=== PATIENT | female | born 1990 | race Caucasian/White ===

== ENCOUNTER 2022-11-09 16:48 | Emergency (ER) | payer BC, SELFPAY ==
[2022-11-09] VITALS (10 sets, daily range): BP systolic 97–101; BP diastolic 56–68; PULSE 100–123; RESP 16; TEMP 37.7; O2SAT 96–99; BMI 22.5
[2022-11-09] MEDS: ONDANSETRON 2 MG/ML inj 4 MG IVP ×2 (17:35→18:40)
[2022-11-09] MEDS: 0.9 % SODIUM CHLORIDE 1000 ml 1,000 ML IV ×2 (17:35→18:40)
[2022-11-09 17:42] LABS: Basophils Absolute Auto 0.01 K/uL (0.00-0.30); Basophils Percent Auto 0.1 % (0.0-3.0); Hematocrit 41.5 % (33.0-51.0); Hemoglobin* 14.4 gm/dL (12.0-16.0); Immature Granulocytes Abs Auto 0.02 K/uL (0.00-0.30); Immature Granulocytes Pct Auto 0.2 %; Lymphocytes Percent Auto 4.4 % (20-44); Mean Corpuscular HGB Conc 35 gm/dL (32-36); Mean Corpuscular Hemoglobin 30 pg (26-34); Mean Corpuscular Volume 86 fL (80-100); Monocytes Percent Auto 3.1 % (0.0-11.0); Neutrophils Percent Auto 92.2 % (42.0-72.0); Platelet Count* 214 K/uL (140-440); Red Blood Count 4.85 m/uL (4.00-5.20)
[2022-11-09 17:43] LABS: Slide Review Reflex No
[2022-11-09 17:57] LABS: Albumin* 4.2 g/dL (3.3-5.0)
[2022-11-09 17:58] LABS: Chloride* 106 mmol/L (96-114); Potassium* 3.3 mmol/L (3.6-5.1); Sodium* 136 mmol/L (135-149)
[2022-11-09 18:00] LABS: Aspartate Amino Transferase* 23 U/L (12-35); Bilirubin Direct* 0.2 mg/dL (0.0-0.5); Bilirubin Total* 0.5 mg/dL (0.1-1.5); Blood Urea Nitrogen* 8 mg/dL (5-24); Carbon Dioxide* 19 mmol/L (20-32); Creatinine* 0.4 mg/dL (0.5-1.5); Est. Creatinine Clearance* 181.69; Estimated Glomerular Filt Rate 135 ml/min; Total Protein* 7.5 g/dL (6.0-8.3)
[2022-11-09 18:01] LABS: Alanine Aminotransferase* 20 U/L (4-35); Alkaline Phosphatase* 62 U/L (40-150); Calcium* 8.6 mg/dL (8.4-10.6); Glucose* 127 mg/dL (60-115)
--- NOTE | 2022-11-09 18:19 | ED.GENADULT ---
HPI - General Adult General Chief complaint: Abdominal Pain Stated complaint: 13w preg, stomach bug, can't keep fluids down Time Seen by Provider: 11/09/22 16:50 Source: patient Mode of arrival: ambulatory Limitations: no limitations History of Present Illness HPI narrative: 31-year-old female, 13 weeks coming in today complaining of intractable vomiting. Patient has been having morning sickness throughout her but is well controlled with Reglan and Unisom. Unfortunately her taller brought home a stomach bug complete with vomiting and diarrhea, and she started vomiting this morning. She has not been able to stop vomiting all day. Cannot keep down ice chips or small sips of water. Denies fevers. No abdominal discomfort. No vaginal discharge. One episode of diarrhea this morning. Related Data Allergies Allergy/AdvReac Type Severity Reaction Status Date / Time No Known Drug Allergies Allergy Verified 11/09/22 17:02 Review of Systems Status of ROS: Reports: 10 or more systems reviewed and unremarkable except as noted in History and below PFSH [facility] Social History Smoking Status: Never smoker Do you use any of these nicotine containing products: None Second hand tobacco smoke exposure: No How often do you have a drink containing alcohol: never AUDIT-C Alcohol total score: 0 Non-prescribed substance use: denies use Exam Narrative: Exam Narrative: Well-nourished well-developed patient in no acute distress. Alert and oriented. Answers questions appropriately. Mood and affect are appropriate. Thoughts are goal oriented and rational. No tangential or magical thinking noted. Patient speaks in full sentences without needing to catch her breath. HEENT: Normocephalic atraumatic. Pupils are equally round reactive to light. Extraocular muscles are intact. Conjunctivae are moist without any icterus noted. Moist mucous membranes. Posterior pharynx is normal. Neck is soft without any lymphadenopathy or thyromegaly. No masses are appreciated. Cardiovascular: Heart is tachycardic with regular rhythm S1 and S2 are present without any murmurs. Lungs: Clear to auscultation bilaterally no wheezes rhonchi or rales are appreciated. Patient takes deep breaths without any discomfort. Abdomen: Soft and nontender nondistended with normal bowel sounds. Extremities: Bilateral lower extremities are without edema. Skin: Well perfused without any obvious rashes. Const: Vital Signs, click to edit/add: Vital Signs - 24 hr 11/09/22 16:58 11/09/22 18:05 11/09/22 18:06 Temperature 99.8 F H Pulse Rate 105 H 100 Pulse Rate [Right Pulse Oximeter] 123 H Respiratory Rate 16 Blood Pressure 100/59 L Blood Pressure [Ri ght Upper Arm] 101/68 Pulse Oximetry 96 99 99 Oxygen Delivery Me thod Room Air Room Air Course Course Hospital Course: IV was started and patient received 2 L of normal saline the mg of IV Zofran. She tolerated this well and was feeling significantly better. She was drinking 7 up prior to discharge without any vomiting. Pulse came down into the normal range. We did do some basic lab work to rule out any other causes of vomiting, blood work was unremarkable aside from slightly low potassium. Vital Signs Vital signs: Initial Vital Signs Temperature 99.8 F H 11/09/22 16:58 Temperature Source Temporal Artery Scan 11/09/22 16:58 Pulse Rate 123 H 11/09/22 16:58 Pulse Rhythm 11/09/22 16:58 Pulse Strength 3+ Normal 11/09/22 16:58 Respiratory Rate 16 11/09/22 16:58 Blood Pressure 101/68 11/09/22 16:58 Blood Pressure Mean 79 11/09/22 16:58 Pulse Oximetry 96 11/09/22 16:58 Oxygen Delivery Method 11/09/22 16:58 Vital Signs Temperature 99.8 F H 11/09/22 16:58 Pulse Rate 123 H 11/09/22 16:58 Respiratory Rate 16 11/09/22 16:58 Blood Pressure 101/68 11/09/22 16:58 Pulse Oximetry 96 11/09/22 16:58 Oxygen Delivery Method 11/09/22 16:58 Temperature 99.8 F H 11/09/22 16:58 Pulse Rate 100 11/09/22 18:06 Respiratory Rate 16 11/09/22 16:58 Blood Pressure 100/59 L 11/09/22 18:05 Pulse Oximetry 99 11/09/22 18:06 Oxygen Delivery Method 11/09/22 18:05 Medical Decision Making MDM Narrative Medical decision making narrative: Vomiting. Ameliorated with treatment. Continue her current prescribed medications. Lab Data Lab results reviewed: Yes I reviewed the patient's lab results Labs: Lab Results 11/09/22 11/09/22 Range/Units 17:33 17:33 WBC 9.90 (4.50-11.00) K/uL RBC 4.85 (4.00-5.20) m/uL Hgb 14.4 (12.0-16.0) gm/dL Hct 41.5 (33.0-51.0) % MCV 86 (80-100) fL MCH 30 (26-34) pg MCHC 35 (32-36) gm/dL RDW Coeff of Lidya 13.0 (11.5-15.5) % Plt Count 214 (140-440) K/uL Neut % (Auto) 92.2 H (42.0-72.0) % Lymph % (Auto) 4.4 L (20-44) % Throckmorton % (Auto) 3.1 (0.0-11.0) % Eos % (Auto) 0.0 (0.0-7.0) % Baso % (Auto) 0.1 (0.0-3.0) % Neut # (Auto) 9.10 H (1.7-7.0) K/uL Lymph # (Auto) 0.40 L (0.90-2.90) K/uL Throckmorton # (Auto) 0.30 (0.00-0.90) K/UL Eos # (Auto) 0.00 (0.00-0.50) K/uL Baso # (Auto) 0.01 (0.00-0.30) K/uL Sodium 136 (135-149) mmol/L Potassium 3.3 L (3.6-5.1) mmol/L Chloride 106 (96-114) mmol/L Carbon Dioxide 19 L (20-32) mmol/L BUN 8 (5-24) mg/dL Creatinine 0.4 L (0.5-1.5) mg/dL Estimated Creat Clear 181.69 Estimated GFR 135 ml/min Glucose 127 H (60-115) mg/dL Calcium 8.6 (8.4-10.6) mg/dL Total Bilirubin 0.5 (0.1-1.5) mg/dL Direct Bilirubin 0.2 (0.0-0.5) mg/dL AST 23 (12-35) U/L ALT 20 (4-35) U/L Alkaline Phosphatase 62 (40-150) U/L Total Protein 7.5 (6.0-8.3) g/dL Albumin 4.2 (3.3-5.0) g/dL Discharge Plan Discharge Clinical Impression: Vomiting Patient Disposition: Home, Self-Care Condition: Improved Additional Instructions: Continue regularly prescribed medications. Hydrate with small amounts of fluid frequently throughout the day. Follow Up/Referrals: Provider,Not a Local [Primary Care Provider] - Stand Alone Forms: [email or web address] Info Instructions
== END 2022-11-09 19:15 | disposition home or self-care (01) ==
PROVIDERS: Emergency Provider Family Medicine
DX: R11.10 Vomiting, unspecified (principal); Z3A.13 13 weeks gestation of pregnancy
CPT/HCPCS: 36415; 80048; 80076; 85025; 96374; 96376; 99283; 99284; J2405; J7030

== ENCOUNTER 2024-06-05 10:57 | Emergency (ER) | payer BC, SELFPAY ==
[2024-06-05 11:02] VITALS: BP 121/80; PULSE 60; RESP 16; TEMP 36.7; O2SAT 98; BMI 21.6
--- NOTE | 2024-06-05 11:24 | ED.GENADULT ---
HPI - General Adult General Time Seen by Provider: 11:24 Date Seen: 06/05/24 Chief complaint: Headache/Migraine Stated complaint: Headaches, dizziness Time Seen by Provider: 06/05/24 11:16 Source: patient and RN notes reviewed Mode of arrival: ambulatory Limitations: no limitations History of Present Illness HPI narrative: This 33-year-old female is coming in with symptoms where she just isn't feeling right. She has had 4 days of progressive episodes lasting seconds but now increasing in frequency. It is hard for her to describe, it is not a sense of going to black out or standing up too quick. She will have these episodes when she feels like she is trying to refocus on something and it will come, it is almost like her brain is not tracking as fast as everything else around her. She will feel a sense of fogginess. She has noted no incoordination, no motor symptoms with this. She has a dull sense of pressure in her head with this. She has had headaches before and she would not even state that there is a need to take any ibuprofen. It is not that bad just more of a dull pressure sensation. She notes no visual changes, no double vision. There is no numbness tingling anywhere. It is not where she feels imbalanced or a spinning sensation, she does not feel like it is vertigo. She becomes tearful talking about it worried that there might be something seriously wrong. She has had iron deficiency anemia before, wonders if her hemoglobin it could be low. She is due for her. Coming up, doubts there is a chance for but did take a test at home 2 days ago because of these symptoms and was negative. She is just worried that this could be something serious. She has not had any recent COVID, has not otherwise been sick with any respiratory symptoms. She notes no chest symptoms, no breathing issues, no chest pain or palpitations, does not feel like anything is associated in her chest when this comes on. She states this is anxiety provoking for her, does start crying, she states she has 2 young children at home. She has been able to exercise, run through this, does not feel it is altered her activities. Related Data Home Medications ?Medication ?Instructions ?Recorded ?Confirmed No Known Home Medications 06/05/24 06/05/24 Allergies Allergy/AdvReac Type Severity Reaction Status Date / Time No Known Drug Allergies Allergy Verified 05/22/23 18:16 Review of Systems Status of ROS: Reports: 6 or more systems reviewed and unremarkable except as noted in History and below [facility] Medical History Mastitis associated with childbirth, delivered ?O91.22 - Nonpurulent mastitis associated with the puerperium (ICD-10) Social History Smoking Status: Never smoker Do you use any of these nicotine containing products: None Second hand tobacco smoke exposure: No How often do you have a drink containing alcohol: never AUDIT-C Alcohol total score: 0 Non-prescribed substance use: denies use Exam Const: Vital Signs, click to edit/add: Vital Signs - 24 hr 06/05/24 11:02 Temperature 98.0 F Pulse Rate [Pulse Oximeter] 60 Respiratory Rate 16 Blood Pressure [Ri ght Upper Arm] 121/80 Pulse Oximetry 98 Oxygen Delivery Me thod Room Air This 33-year-old female is alert, interactive, no apparent distress. She does become tearful about talking about her symptoms but overall do not find her overly anxious. Pupils are equal round reactive, extraocular muscles intact, no nystagmus, head movement does not induce her symptoms. TMs canals are normal. Symmetrical facial function, speech normal. Neck supple, no adenopathy or masses. Lungs are clear, good air entry, no wheezing or crackles. CV regular rate and rhythm, no murmur. Strength throughout her upper extremities from shoulders down do hands and fingers is 5/5 and symmetric. Normal rapid alternating finger movements, no tremors. Her gait is normal, can toe and heel walk, balance is easily on her legs. Strength in her lower extremities is 5/5 and symmetric. There is no noted paresthesias on examination. No lower extremity edema. Documenting provider has reviewed patient's vital signs: yes Course Course ED Course: Reviewed with patient that we certainly can do some basic labs on her and she would like this. Can do a comprehensive metabolic panel as well as a CBC, basic inflammatory markers. Discussed neuro imaging with head CT and CT angio head and neck. This would rule out large tumors, bleeds, potential dissection. Her headache is not severe which makes me think dissection is less likely. She would like to proceed with neuro imaging. She understands that I cannot do MRI imaging and that may be needed if she has ongoing symptoms, possibly even Neurology. Long COVID comes to mind but she has not had any recent COVID. Will start this workup, she is in agreement to the plan. Will confirm negative test before neuro imaging. She has had symptoms for 4 days now, doubt this is stroke pathology. Will observe, she does not feel that her ?headache? requires any management. Reevaluation(s) Time of Reevaluation #1: 12:56 Reevaluation #1: Reviewed normal CT head and CT angiogram of head neck with patient, provided her copies. Her labs are reassuring, no elevation in her inflammatory markers, not anemic. We reviewed plan to follow up outpatient with her primary care provider, consider neurology consultation and possibly MRI of her brain with ongoing symptoms. Obviously if she has further concerns or there is worsening, we are always here to re-evaluate. Vital Signs Vital signs: Initial Vital Signs Temperature 98.0 F 06/05/24 11:02 Temperature Source Temporal Artery Scan 06/05/24 11:02 Pulse Rate 60 06/05/24 11:02 Respiratory Rate 16 06/05/24 11:02 Blood Pressure 121/80 06/05/24 11:02 Blood Pressure Mean 93 06/05/24 11:02 Blood Pressure Position Sitting 06/05/24 11:02 Pulse Oximetry 98 06/05/24 11:02 Oxygen Delivery Method Room Air 06/05/24 11:02 Vital Signs Temperature 98.0 F 06/05/24 11:02 Pulse Rate 60 06/05/24 11:02 Respiratory Rate 16 06/05/24 11:02 Blood Pressure 121/80 06/05/24 11:02 Pulse Oximetry 98 06/05/24 11:02 Oxygen Delivery Method Room Air 06/05/24 11:02 Temperature 98.0 F 06/05/24 11:02 Pulse Rate 60 06/05/24 11:02 Respiratory Rate 16 06/05/24 11:02 Blood Pressure 121/80 06/05/24 11:02 Pulse Oximetry 98 06/05/24 11:02 Oxygen Delivery Method Room Air 06/05/24 11:02 Medical Decision Making Lab Data Lab results reviewed: Yes I reviewed the patient's lab results Labs: Lab Results 06/05/24 Range/Units 11:50 WBC 7.60 (4.50-11.00) K/uL RBC 4.98 (4.00-5.20) m/uL Hgb 14.3 (12.0-16.0) gm/dL Hct 43.2 (33.0-51.0) % MCV 87 (80-100) fL MCH 29 (26-34) pg MCHC 33 (32-36) gm/dL RDW Coeff of Lidya 12.4 (11.5-15.5) % Plt Count 210 (140-440) K/uL Neut % (Auto) 61.6 (42.0-72.0) % Lymph % (Auto) 30.5 (20-44) % Bradley % (Auto) 6.7 (0.0-11.0) % Eos % (Auto) 0.9 (0.0-7.0) % Baso % (Auto) 0.3 (0.0-3.0) % Neut # (Auto) 4.68 (1.7-7.0) K/uL Lymph # (Auto) 2.32 (0.90-2.90) K/uL Bradley # (Auto) 0.50 (0.00-0.90) K/UL Eos # (Auto) 0.07 (0.00-0.50) K/uL Baso # (Auto) 0.02 (0.00-0.30) K/uL Abs Immat Gran (auto) 0.00 (0.00-0.30) K/uL Imm/Tot Granulo (auto) 0.0 % ESR 6 (2-20) mm/hr Sodium 134 L (135-149) mmol/L Potassium 3.8 (3.6-5.1) mmol/L Chloride 101 (96-114) mmol/L Carbon Dioxide 27 (20-32) mmol/L Anion Gap 6 L (7-15) mEq/L BUN 13 (5-24) mg/dL Creatinine 0.6 (0.5-1.5) mg/dL Estimated Creat Clear 118.88 Estimated GFR 121 ml/min Glucose 95 (60-115) mg/dL Calcium 9.9 (8.4-10.6) mg/dL Total Bilirubin 0.4 (0.1-1.5) mg/dL AST 21 (12-35) U/L ALT 14 (4-35) U/L Alkaline Phosphatase 76 (40-150) U/L C-Reactive Protein < 0.5 L (0.5-1.0) mg/dL Total Protein 8.2 (6.0-8.3) g/dL Albumin 4.9 (3.3-5.0) g/dL Urine HCG, Qual Negative (Negative) Imaging Data CT scan - head: Attestation: I have reviewed the pertinent imaging results. Radiologist's impression: Patient: MARCELA JERRY Facility:?[facility] Patient ID:?[id number] Site Patient ID:?[id number]. Site :?1990 Study:?CT-Head W/O-06/05/2024 12:35:24 PM Ordering Physician:Willard Coates Final Report: CT HEAD DATE: 06/05/2024 CLINICAL HISTORY: Patient with fogginess and headache. TECHNIQUE: Standard CT scanning of the head was performed. COMPARISON: None. FINDINGS: There is no intracranial hemorrhage. The georges matter-white matter differentiation is intact. The size of the ventricular system is normal for age. There is no mass effect or midline shift. The calvarium is unremarkable. The orbits are unremarkable. The paranasal sinuses are unremarkable. The mastoid air cells are unremarkable. The soft tissues are unremarkable. IMPRESSION: Normal head CT. Please note that all CT scans at this facility use dose modulation, iterative reconstruction, and/or weight-based dosing when appropriate to reduce radiation dose to as low as reasonably achievable. Dictated by: Murtaza Kramer MD @ 06/05/2024 12:42:03 (Electronic Signature) CT- Other: Attestation: I have reviewed the pertinent imaging results. Radiologist's impression: Patient: MARCELA JERRY Facility:?[facility] Patient ID:?[id number] Site Patient ID:?[id number]. Site :?1990 Study:?CT-Head Angio W/ 95CC [id number]/13/2024 12:35:57 PM Ordering Physician:Willard Coates Final Report: CT ANGIOGRAM HEAD DATE: 06/05/2024 CLINICAL HISTORY: Patient with fogginess and headache. TECHNIQUE: Standard helical CT image acquisition through the intracranial circulation following intravenous administration of contrast material with bolus tracking. 2D and 3D MIP images for post-processing were performed and interpreted on an independent workstation and 3D images were permanently archived. COMPARISON: CT same day. FINDINGS: There is no proximal intracranial large vessel occlusion. There is no intracranial aneurysm. The right internal carotid artery is normal. The right middle cerebral artery and its branches are normal. The right anterior cerebral artery and its branches are normal. The left internal carotid artery is normal. The left middle cerebral artery and its branches are normal. The left anterior cerebral artery and its branches are normal. The anterior communicating artery is well visualized and appears normal. The right vertebral artery and PICA are normal. The left vertebral artery and PICA are normal. The left vertebral artery is dominant. The basilar artery is patent and appears normal. The right posterior cerebral artery is normal. The left posterior cerebral artery is normal. The visualized venous structures are patent. IMPRESSION: Patent proximal intracranial vasculature without intracranial aneurysms. Please note that all CT scans at this facility use dose modulation, iterative reconstruction, and/or weight-based dosing when appropriate to reduce radiation dose to as low as reasonably achievable. Dictated by: Murtaza Kramer MD @ 06/05/2024 12:44:56 (Electronic Signature) Patient: MARCELA JERRY Facility:?[facility] Patient ID:?[id number] Site Patient ID:?[id number]. Site :?1990 Study:?CT-Neck Angio Angio W/ 95CC [id number]/13/2024 12:36:01 PM Ordering Physician:Willard Coates Final Report: CT ANGIOGRAM NECK DATE: 06/05/2024 CLINICAL HISTORY: Patient with headache and fogginess. TECHNIQUE: Standard helical CT image acquisition of the neck up to the skull base after bolus intravenous contrast enhancement. 2D and 3D MIP images for post-processing were performed and interpreted on an independent workstation and 3D images were permanently archived. COMPARISON: CT same day. FINDINGS: The origins of the great vessels from the aortic arch are patent. The origin of the right vertebral artery is patent. The origin of the left vertebral artery is patent. The common carotid arteries are patent. There is no stenosis at the origin of the right internal carotid artery. There is no stenosis at the origin of the left internal carotid artery. The rest of the cervical segments of the internal carotid arteries are patent up to the skull base. The left vertebral artery is dominant. The cervical segments of the vertebral arteries are patent up to the skull base. The visualized lung apices are unremarkable. The thyroid gland is unremarkable. The soft tissues of the neck are unremarkable. There are degenerative changes in the cervical spine. IMPRESSION: Patent cervical vasculature. Please note that all CT scans at this facility use dose modulation, iterative reconstruction, and/or weight-based dosing when appropriate to reduce radiation dose to as low as reasonably achievable. Dictated by: Murtaza Kramer MD @ 06/05/2024 12:43:36 (Electronic Signature) Discharge Plan Discharge Clinical Impression: Brain fog Headache Qualifiers: Headache type: unspecified Headache chronicity pattern: acute headache Intractability: not intractable Qualified Code(s): R51.9 - Headache, unspecified Patient Disposition: Home, Self-Care Condition: Stable Instructions: General Headache (ED) Additional Instructions: Recommend scheduling a clinic follow-up with your primary care provider as soon as you are able to with ongoing symptoms. If you have further concerns, symptoms are changing in interim, we are always happy to re-evaluate you here. Activity Level: Activity as Tolerated Discharge Diet: Regular Prescriptions: No Action No Known Home Medications Follow Up/Referrals: Provider,Not a Local [Primary Care Provider] - Stand Alone Forms: [employer] Info Instructions
--- NOTE | 2024-06-05 11:37 | CRLHL7_ITS ---
For Patients: As a result of the Century Cures Act, medical imaging exams and procedure reports are released immediately into your electronic medical record. You may view this report before your referring provider. If you have questions, please contact your health care provider. CT HEAD DATE: 06/05/2024 CLINICAL HISTORY: Patient with fogginess and headache. TECHNIQUE: Standard CT scanning of the head was performed. COMPARISON: None. FINDINGS: There is no intracranial hemorrhage. The georges matter-white matter differentiation is intact. The size of the ventricular system is normal for age. There is no mass effect or midline shift. The calvarium is unremarkable. The orbits are unremarkable. The paranasal sinuses are unremarkable. The mastoid air cells are unremarkable. The soft tissues are unremarkable. IMPRESSION: Normal head CT. Please note that all CT scans at this facility use dose modulation, iterative reconstruction, and/or weight-based dosing when appropriate to reduce radiation dose to as low as reasonably achievable. Dictated by: Murtaza Kramer MD @ 06/05/2024 12:42:03 (Electronically Signed)
--- NOTE | 2024-06-05 11:37 | CRLHL7_ITS ---
For Patients: As a result of the Century Cures Act, medical imaging exams and procedure reports are released immediately into your electronic medical record. You may view this report before your referring provider. If you have questions, please contact your health care provider. CT ANGIOGRAM HEAD DATE: 06/05/2024 CLINICAL HISTORY: Patient with fogginess and headache. TECHNIQUE: Standard helical CT image acquisition through the intracranial circulation following intravenous administration of contrast material with bolus tracking. 2D and 3D MIP images for post-processing were performed and interpreted on an independent workstation and 3D images were permanently archived. COMPARISON: CT same day. FINDINGS: There is no proximal intracranial large vessel occlusion. There is no intracranial aneurysm. The right internal carotid artery is normal. The right middle cerebral artery and its branches are normal. The right anterior cerebral artery and its branches are normal. The left internal carotid artery is normal. The left middle cerebral artery and its branches are normal. The left anterior cerebral artery and its branches are normal. The anterior communicating artery is well visualized and appears normal. The right vertebral artery and PICA are normal. The left vertebral artery and PICA are normal. The left vertebral artery is dominant. The basilar artery is patent and appears normal. The right posterior cerebral artery is normal. The left posterior cerebral artery is normal. The visualized venous structures are patent. IMPRESSION: Patent proximal intracranial vasculature without intracranial aneurysms. Please note that all CT scans at this facility use dose modulation, iterative reconstruction, and/or weight-based dosing when appropriate to reduce radiation dose to as low as reasonably achievable. Dictated by: Murtaza Kramer MD @ 06/05/2024 12:44:56 (Electronically Signed)
--- NOTE | 2024-06-05 11:37 | CRLHL7_ITS ---
For Patients: As a result of the Century Cures Act, medical imaging exams and procedure reports are released immediately into your electronic medical record. You may view this report before your referring provider. If you have questions, please contact your health care provider. CT ANGIOGRAM NECK DATE: 06/05/2024 CLINICAL HISTORY: Patient with headache and fogginess. TECHNIQUE: Standard helical CT image acquisition of the neck up to the skull base after bolus intravenous contrast enhancement. 2D and 3D MIP images for post-processing were performed and interpreted on an independent workstation and 3D images were permanently archived. COMPARISON: CT same day. FINDINGS: The origins of the great vessels from the aortic arch are patent. The origin of the right vertebral artery is patent. The origin of the left vertebral artery is patent. The common carotid arteries are patent. There is no stenosis at the origin of the right internal carotid artery. There is no stenosis at the origin of the left internal carotid artery. The rest of the cervical segments of the internal carotid arteries are patent up to the skull base. The left vertebral artery is dominant. The cervical segments of the vertebral arteries are patent up to the skull base. The visualized lung apices are unremarkable. The thyroid gland is unremarkable. The soft tissues of the neck are unremarkable. There are degenerative changes in the cervical spine. IMPRESSION: Patent cervical vasculature. Please note that all CT scans at this facility use dose modulation, iterative reconstruction, and/or weight-based dosing when appropriate to reduce radiation dose to as low as reasonably achievable. Dictated by: Murtaza Kramer MD @ 06/05/2024 12:43:36 (Electronically Signed)
[2024-06-05 12:00] LABS: Ur HCG Qualitative* Negative (Negative)
[2024-06-05 12:03] LABS: Basophils Absolute Auto 0.02 K/uL (0.00-0.30); Basophils Percent Auto 0.3 % (0.0-3.0); Eosinophils Absolute Auto 0.07 K/uL (0.00-0.50); Eosinophils Percent Auto 0.9 % (0.0-7.0); Hematocrit 43.2 % (33.0-51.0); Hemoglobin* 14.3 gm/dL (12.0-16.0); Lymphocytes Absolute Auto 2.32 K/uL (0.90-2.90); Lymphocytes Percent Auto 30.5 % (20-44); Mean Corpuscular HGB Conc 33 gm/dL (32-36); Mean Corpuscular Hemoglobin 29 pg (26-34); Mean Corpuscular Volume 87 fL (80-100); Monocytes Percent Auto 6.7 % (0.0-11.0); Neutrophils Absolute Auto 4.68 K/uL (1.7-7.0); Neutrophils Percent Auto 61.6 % (42.0-72.0); Platelet Count* 210 K/uL (140-440); RDW Coefficient of Variation % 12.4 % (11.5-15.5); Red Blood Count 4.98 m/uL (4.00-5.20)
[2024-06-05 12:05] LABS: Slide Review Reflex No
[2024-06-05 12:19] LABS: Albumin* 4.9 g/dL (3.3-5.0); Chloride* 101 mmol/L (96-114); Sodium* 134 mmol/L (135-149)
[2024-06-05 12:20] LABS: Potassium* 3.8 mmol/L (3.6-5.1)
[2024-06-05 12:22] LABS: Alanine Aminotransferase* 14 U/L (4-35); Alkaline Phosphatase* 76 U/L (40-150); Anion Gap 6 mEq/L (7-15); Aspartate Amino Transferase* 21 U/L (12-35); Bilirubin Total* 0.4 mg/dL (0.1-1.5); Blood Urea Nitrogen* 13 mg/dL (5-24); Carbon Dioxide* 27 mmol/L (20-32); Creatinine* 0.6 mg/dL (0.5-1.5); Est. Creatinine Clearance* 118.88; Estimated Glomerular Filt Rate 121 ml/min; Glucose* 95 mg/dL (60-115); Total Protein* 8.2 g/dL (6.0-8.3)
[2024-06-05 12:23] LABS: Calcium* 9.9 mg/dL (8.4-10.6)
[2024-06-05 12:25] LABS: C Reactive Protein* < 0.5 mg/dL (0.5-1.0)
[2024-06-05 12:42] LABS: Erythrocyte SedimentationRate* 6 mm/hr (2-20)
[2024-06-05 12:57] VITALS: BP 122/78; PULSE 75; RESP 16; O2SAT 99
== END 2024-06-05 13:02 | disposition home or self-care (01) ==
PROVIDERS: Emergency Provider Family Medicine
DX: R51.9 Headache, unspecified (principal); R41.9 Unspecified symptoms and signs involving cognitive functions and awareness
CPT/HCPCS: 36415; 70450; 70496; 70498; 80053; 81025; 84703; 85025; 85651; 86140; 99284; Q9967